=== PATIENT | female | born 1955 | race African-American/Black ===

== ENCOUNTER 2017-02-03 15:35 | Emergency (ER) | payer OTHER ==
[2017-02-03 15:41] VITALS: BP 151/84; PULSE 57; TEMP 98; BMI 35.0
[2017-02-03] MEDS ORDERED: IBUPROFEN 600 MG TABLET (FP) PO ONE ×2 (16:18→16:24)
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
== END 2017-02-03 16:49 | disposition home or self-care (01) ==
LOC: JERFT 15:35
DX: M54.5 Low back pain (principal); V49.59XA Passenger injured in collision with other motor vehicles in traffic accident, initial encounter; Y92.415 Exit ramp or entrance ramp of street or highway as the place of occurrence of the external cause; Y99.0 Civilian activity done for income or pay; Y93.89 Activity, other specified; I10 Essential (primary) hypertension
CPT/HCPCS: 99281-25